=== PATIENT | female | born 1940 | race Caucasian/White ===

== ENCOUNTER 2017-08-24 14:35 | Emergency (ER) | payer OTHER, BC ==
--- NOTE | 2017-08-24 15:57 | EDPHY ---
H & P Smoking Status: Never smoked Time Seen by Provider: 08/24/17 15:44 HPI/ROS: CHIEF COMPLAINT: Suicidal ideation HISTORY OF PRESENT ILLNESS: 77-year-old female with a history of anxiety and depression presents with suicidal ideation. Increasing depression and anxiety recently. Associated with insomnia. She saw her primary care physician last week and was placed on Remeron. Since then, she has had increasing suicidal ideation. She just wants to , but states that she is too chicken to kill herself. No suicidal plan and no h/o suicide attempt. History of anxiety and depression intermittently over the years. Previously she was on Zoloft, which alleviated her depressive symptoms. REVIEW OF SYSTEMS: Constitutional: No fever, no chills Eyes: No visual changes ENT: No sore throat Respiratory: No cough, no shortness of breath Cardiac: No chest pain Gastrointestinal: no vomiting, no abdominal pain Genitourinary: no dysuria Musculoskeletal: No leg pain or swelling Skin: No rash Neurological: No headache, no weakness (Karyn Boyer) Past Medical/Surgical History: Depression Anxiety (Karyn Boyer) Social History: (Karyn Boyer) Physical Exam: General Appearance: Alert, pleasant, tearful Eyes: Pupils equal and round, conjunctival injection ENT, Mouth: Mucous membranes moist Neck: Normal inspection Respiratory: Lungs are clear to auscultation Cardiovascular: Regular rate and rhythm Gastrointestinal: Abdomen is soft and nontender Neurological: A&O, nonfocal, normal gait Skin: Warm and dry, no rash Extremities: Nontender, no pedal edema Psychiatric: depressed (Karyn Boyer) Constitutional: Initial Vital Signs Temperature (C) 36.7 C 08/24/17 14:42 Heart Rate 71 08/24/17 14:42 Respiratory Rate 14 08/24/17 14:42 Blood Pressure 140/73 H 08/24/17 14:42 O2 Sat (%) 94 08/24/17 14:42 O2 Delivery Mode Room Air Allergies/Adverse Reactions: No Known Allergies Allergy (Unverified 08/24/17 14:40) Home Medications: Medication Instructions Recorded Levothyroxine 08/24/17 Remeron 08/24/17 Zoloft 100mg (*) 08/24/17 Medical Decision Making ED Course/Re-evaluation: This patient presents with increased depression and suicidal ideation after being placed on Remeron. She is here voluntarily and requests a mental health evaluation. Signed over to Dr. Smith at shift change. Mental health eval pending. (Karyn Boyer) 0740: This patient has been seen evaluated by mental health. Kaleb, they feel that this patient is safe for discharge. I did go and see and speak with the patient she is comfortable this plan she is asking for something to sleep tonight. I will give her very limited supply of Ativan. Three tabs. She does understand if she has worsening suicidal ideation or wanting to hurt herself or anybody else she immediately return emergency room. Additionally she has been given follow-up resources. Psychiatry was consulted and felt that she is safe for discharge. (Venancio Smith) - Data Points Laboratory Results: Laboratory Results 08/24/17 16:10 08/24/17 16:10 08/24/17 08/24/17 08/24/17 17:15 16:10 16:10 WBC 4.84 10^3/uL 10^3/uL (3.80-9.50) RBC 5.82 10^6/uL H 10^6/uL (4.18-5.33) Hgb 17.6 g/dL H g/dL (12.6-16.3) Hct 51.6 % H % (38.0-47.0) MCV 88.7 fL fL (81.5-99.8) MCH 30.2 pg pg (27.9-34.1) MCHC 34.1 g/dL g/dL (32.4-36.7) RDW 13.3 % % (11.5-15.2) Plt Count 160 10^3/uL 10^3/uL (150-400) MPV 9.5 fL fL (8.7-11.7) Neut % (Auto) 58.5 % % (39.3-74.2) Lymph % (Auto) 24.6 % % (15.0-45.0) Catron % (Auto) 13.8 % H % (4.5-13.0) Eos % (Auto) 1.9 % % (0.6-7.6) Baso % (Auto) 1.0 % % (0.3-1.7) Nucleat RBC Rel Count 0.0 % % (0.0-0.2) Absolute Neuts (auto) 2.83 10^3/uL 10^3/uL (1.70-6.50) Absolute Lymphs (auto) 1.19 10^3/uL 10^3/uL (1.00-3.00) Absolute Monos (auto) 0.67 10^3/uL 10^3/uL (0.30-0.80) Absolute Eos (auto) 0.09 10^3/uL 10^3/uL (0.03-0.40) Absolute Basos (auto) 0.05 10^3/uL 10^3/uL (0.02-0.10) Absolute Nucleated RBC 0.00 10^3/uL 10^3/uL (0-0.01) Immature Gran % 0.2 % % (0.0-1.1) Immature Gran # 0.01 10^3/uL 10^3/uL (0.00-0.10) Sodium 141 mEq/L mEq/L (134-144) Potassium 4.2 mEq/L mEq/L (3.5-5.2) Chloride 108 mEq/L mEq/L (97-110) Carbon Dioxide 22 mEq/l mEq/l (22-31) Anion Gap 11 mEq/L mEq/L (8-16) BUN 22 mg/dL mg/dL (7-23) Creatinine 0.7 mg/dL mg/dL (0.6-1.0) Estimated GFR > 60 Glucose 67 mg/dL L mg/dL (70-100) Calcium 9.8 mg/dL mg/dL (8.5-10.4) Urine Opiates Screen NEGATIVE (NEGATIVE) Urine Barbiturates NEGATIVE (NEGATIVE) Ur Phencyclidine Scrn NEGATIVE (NEGATIVE) Ur Amphetamine Screen NEGATIVE (NEGATIVE) U Benzodiazepines Scrn NEGATIVE (NEGATIVE) Urine Cocaine Screen NEGATIVE (NEGATIVE) U Marijuana (THC) Screen NEGATIVE (NEGATIVE) Ethyl Alcohol < 10 mg/dL mg/dL (0-10) Departure - Departure Disposition: Home, Routine, Self-Care Clinical Impression: Suicidal ideation, Severe major depression Condition: Good Instructions: Depression (ED), Suicide Prevention for Adults (ED) Additional Instructions: Stop taking Remeron. Referrals: Pippa Baig MD [Primary Care Provider] - 1-2 days without fail
[2017-08-24 16:44] LABS: % IMMATURE GRANULYOCYTES 0.2 % (0.0-1.1); ABSOLUTE IMMATURE GRANULOCYTES 0.01 10^3/uL (0.00-0.10); ADD DIFF? NO; ADD MORPH? NO; ADD SCAN? NO; ATYPICAL LYMPHOCYTE FLAG 10 (0-99); FRAGMENT RBC FLAG 0 (0-99); HEMATOCRIT 51.6 % (38.0-47.0); HEMOGLOBIN 17.6 g/dL (12.6-16.3); LEFT SHIFT FLG 0 (0-99); LIPEMIA HEMOLYSIS FLAG 90 (0-99); MEAN CELL HEMOGLOBIN 30.2 pg (27.9-34.1); MEAN CELL HEMOGLOBIN CONCENTR. 34.1 g/dL (32.4-36.7); MEAN CELL VOLUME 88.7 fL (81.5-99.8); MEAN PLATELET VOLUME 9.5 fL (8.7-11.7); PLATELET CLUMPS FLAG 0 (0-99); PLATELET COUNT 160 10^3/uL (150-400); RED BLOOD CELL COUNT 5.82 10^6/uL (4.18-5.33); RED CELL DISTRIBUTION WIDTH 13.3 % (11.5-15.2)
[2017-08-24 16:49] LABS: ANION GAP 11 mEq/L (8-16); CALCIUM 9.8 mg/dL (8.5-10.4); CARBON DIOXIDE 22 mEq/l (22-31); CHLORIDE 108 mEq/L (97-110); CREATININE 0.7 mg/dL (0.6-1.0); ETHANOL SERUM < 10 mg/dL (0-10); GLOMERULAR FILTRATION RATE > 60; GLUCOSE 67 mg/dL (70-100); POTASSIUM 4.2 mEq/L (3.5-5.2); SODIUM 141 mEq/L (134-144)
[2017-08-24] MEDS ORDERED: LORAZEPAM 1 MG PREPACK#4 BTL TAKEHOME ONE ×2 (22:32→22:34)
[2017-08-24 22:57] VITALS: BP 132/88; PULSE 73; RESP 18; TEMP 98.2; O2SAT 91
== END 2017-08-24 22:45 | disposition home or self-care (01) ==
DX: R45.851 Suicidal ideations (principal); F32.2 Major depressive disorder, single episode, severe without psychotic features
CPT/HCPCS: 80305; G0480

== ENCOUNTER 2017-11-17 07:28 | Inpatient (IN) | payer OTHER, BC ==
[~2017-11-17 07:28] MED LIST: POVIDONE-IODINE 20 ML in SODIUM CL IRRIG SOLUTION 500 ML IRR ONE; ROPIVACAINE 0.2% 80 MG, EPINEPHrine 0.2 MG, KETOROLAC TROMETHAMINE 30 MG in SYRINGE 0 ML IU ONE; TRANEXAMIC ACID 1,400 MG in NS 100 ML IV ONE
[2017-11-17] MEDS ORDERED: ceFAZolin 1 GM/5 ML SYR ONE (07:50)
[2017-11-17] MEDS ORDERED: ceFAZolin 2 GM/SWFI 2 GM/20 ML SYR IVP ONE (08:05)
[2017-11-17] MEDS ORDERED: ONDANSETRON DISINTEGRATING 4 MG TAB PO ONE (08:05)
[2017-11-17] MEDS ORDERED: GABAPENTIN 300 MG CAP PO ONE (08:05)
[2017-11-17] MEDS ORDERED: DEXAMETHASONE 4 MG/ML VIAL IVP ONE (08:05)
[2017-11-17] MEDS ORDERED: ACETAMINOPHEN 325 MG TAB PO ONE (08:05)
[2017-11-17] MEDS ORDERED: FAMOTIDINE 20 MG TAB PO ONE (08:05)
[2017-11-17] MEDS ORDERED: LIDOCAINE 1% 2 ML INJ ID PRN (08:06)
[2017-11-17] MEDS ORDERED: LR 1,000 ML IV ONE (08:06)
[2017-11-17] MEDS ORDERED: ONDANSETRON DISINTEGRATING 4 MG TAB ONE (08:27)
--- NOTE | 2017-11-17 08:48 | PDHPUP ---
History & Physical Update H&P update statement: This history and physical update is based on an assessment of the patient which was completed after admission or registration (within 24 hours), but prior to the surgery/procedure. H&P update: H&P reviewed & patient examined, no change in patient's condition since H&P completed
[2017-11-17] MEDS ORDERED: MIDAZOLAM 2 MG/2 ML VIAL ONE (09:10)
[2017-11-17] MEDS ORDERED: MIDAZOLAM 2 MG/2 ML VIAL IVP ONE (09:18)
--- NOTE | 2017-11-17 09:19 | PDANEPAE ---
ANE History of Present Illness Patient presents for L CELINA ANE Past Medical History - Cardiovascular History Hx Hypertension: No Hx Arrhythmias: No Hx Chest Pain: No Hx Coronary Artery / Peripheral Vascular Disease: No Hx CHF / Valvular Disease: No Hx Palpitations: No - Pulmonary History Hx COPD: No Hx Asthma/Reactive Airway Disease: No Hx Recent Upper Respiratory Infection: No Hx Oxygen in Use at Home: No Hx Sleep Apnea: No Sleep Apnea Screening Result - Last Documented: Negative - Neurologic History Hx Cerebrovascular Accident: No Hx Seizures: No Hx Dementia: No - Endocrine History Hx Diabetes: No - Renal History Hx Renal Disorders: No - Liver History Hx Hepatic Disorders: No - Neurological & Psychiatric Hx Hx Neurological and Psychiatric Disorders: Yes Neurological / Psychiatric History Comment: neuropathy in both feet,. 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 - Cancer History Hx Cancer: Yes Cancer History Comment: Breast CA - Congenital Disorder History Hx Congenital Disorders: No - GI History Hx Gastrointestinal Disorders: No - Other Health History Other Health History: none - Chronic Pain History Chronic Pain: Yes (spinal stenosis (moderate)) - Surgical History Prior Surgeries: none ANE Review of Systems Review of Systems: - Exercise capacity METS (RN): 4 METS ANE Patient History - Allergies Allergies/Adverse Reactions: No Known Allergies Allergy (Verified 11/05/17 16:57) - Home Medications Home Medications: Levothyroxine [Synthroid 125 mcg (*)] 125 mcg PO DAILY06 08/24/17 [Last Taken 07:00] Sertraline HCl [Zoloft 100mg (*)] 100 mg PO DAILY 08/24/17 [Last Taken Unknown] Eszopiclone [Lunesta] 1 mg PO HS 11/04/17 [Last Taken 11/16/17 22:00] Herbals/Supplements -Info Only 1 ea PO DAILY 11/04/17 [Last Taken 11/10/17] Dacula Carbonate [Dacula Carbonate Cap 300 mg (*)] 900 mg PO HS 11/04/17 [ Last Taken 11/16/17 22:00] - NPO status NPO Status: no food or drink >8 hours NPO Since - Liquids (Date): 11/16/17 NPO Since - Liquids (Time): 19:30 NPO Since - Solids (Date): 11/16/17 NPO Since - Solids (Time): 19:00 - Anes Hx Anes Hx: no prior problems - Smoking Hx Smoking Status: Never smoked - Family Anes Hx Family Hx Anesthesia Complications: none ANE Labs/Vital Signs - Vital Signs Blood Pressure: 118/76 Heart Rate: 63 Respiratory Rate: 20 O2 Sat (%): 93 Height: 172.72 cm Weight: 70.307 kg ANE Physical Exam - Airway Mallampati Score: Class 2 Mouth exam: normal dental/mouth exam - Pulmonary Pulmonary: no respiratory distress - Cardiovascular Cardiovascular: regular rate and rhythym - ASA Status ASA Status: II ANE Anesthesia Plan Anesthesia Plan: spinal (RBA discussed)
[2017-11-17] MEDS ORDERED: fentaNYL 100 MCG/2 ML INJ ONE (09:20)
[2017-11-17] MEDS ORDERED: PROPOFOL/EMULSION 500 MG/50 ML BOTTLE IV ONE ×2 (09:21→10:24)
[2017-11-17] MEDS ORDERED: ONDANSETRON 4 MG/2 ML VIAL ONE (09:55)
[2017-11-17] MEDS ORDERED: NALOXONE HCL 0.4 MG/ML INJ IVP PRN (10:36)
[2017-11-17] MEDS ORDERED: HYDROCODONE/APAP 5/325 TAB PO PRN (10:36)
[2017-11-17] MEDS ORDERED: LR 500 ML IV PRN (10:36)
[2017-11-17] MEDS ORDERED: ONDANSETRON 4 MG/2 ML VIAL IVP PRN ×2 (10:36→11:06)
[2017-11-17] MEDS ORDERED: fentaNYL 100 MCG/2 ML INJ IVP PRN (10:36)
--- NOTE | 2017-11-17 10:43 | POSTOPPROG ---
Post Op Note Date of Operation: 11/17/17 Surgeon: Clinton Bejarano Director Investor Relations: Wendy Anesthesiologist: Roger Anesthesia: IV Sedation, Spinal Post-op Diagnosis: left hip arthritis Procedure: L CELINA Inf/Abcess present in the surg proc area at time of surgery?: No EBL: 100-500
[2017-11-17] MEDS ORDERED: diphenhydrAMINE 25 MG CAP PO PRN (11:06)
[2017-11-17] MEDS ORDERED: PROMETHAZINE HCL 25 MG/ML INJ IVP PRN (11:06)
[2017-11-17] MEDS ORDERED: MAGNESIUM HYDROXIDE 30 ML UDCUP PO PRN (11:06)
[2017-11-17] MEDS ORDERED: LACTULOSE 20 GM/30 ML UDCUP PO PRN (11:06)
[2017-11-17] MEDS ORDERED: BISACODYL 10 MG SUPP PR PRN (11:06)
[2017-11-17] MEDS ORDERED: DIPHENOXYLATE/ATROPINE LOMOTIL 1 TAB PO PRN (11:06)
[2017-11-17] MEDS ORDERED: POLYETHYLENE GLYCOL 3350 17 GM PKT PO PRN (11:06)
[2017-11-17] MEDS ORDERED: ONDANSETRON DISINTEGRATING 4 MG TAB PO PRN (11:06)
[2017-11-17] MEDS ORDERED: traMADol 50 MG TAB PO PRN (11:06)
[2017-11-17] MEDS ORDERED: PROMETHAZINE HCL 25 MG SUPPR PR PRN (11:06)
[2017-11-17] MEDS ORDERED: NS 500 ML IV PRN (11:06)
[2017-11-17] MEDS ORDERED: CYCLOBENZAPRINE 10 MG TAB PO PRN (11:06)
[2017-11-17] MEDS ORDERED: KETOROLAC 30 MG/1 ML SDV IVP PRN (11:06)
--- NOTE | 2017-11-17 11:14 | POSTANESTH ---
Post Anesthetic Evaluation Cardiovascular Status: Similar to Pre-Op Cond Respiratory Status: Similar to Pre-op Cond. Level of Consciousness/Mental Status: Can Participate in Eval Pain Control: Adequate, Prn Tx Ordered Nausea/Vomiting Control: Adequate, Prn Tx Ordered Complications Possibly Related to Anesthesia: None Noted
--- NOTE | 2017-11-17 11:24 | GOP ---
[f rep st] OPERATIVE REPORT DATE OF OPERATION: 11/17/2017 SURGEON: Clinton Bejarano MD SHIPPING AND RECEIVING COORDINATOR: BROOK Kenney. Skyler Talbert CFA. ANESTHESIA: Combination of Marcaine, spinal, and IV sedation. ANESTHESIOLOGIST: Shahid Duran MD. PREOPERATIVE DIAGNOSIS: Left hip severe degenerative arthritis. POSTOPERATIVE DIAGNOSIS: Left hip severe degenerative arthritis. PROCEDURE PERFORMED: Left total hip arthroplasty, ceramic femoral head on highly cross-linked polyet hylene cup liner. FINDINGS: ESTIMATED BLOOD LOSS: 300 mL. DESCRIPTION OF PROCEDURE: The patient was given 2 g of IV Ancef preoperatively within 60 minutes of surgery. She also received IV tranexamic acid at a dose of 20 mg/kg. She was placed on the operatin g room table and given spinal anesthesia with Marcaine by Dr. Duran. She was then placed supine and given IV sedation. A Cabral catheter was not used. She wore a GERARD stocking and SCD on the nonoperati ve leg. She was rolled to the right lateral decubitus position. The position was secured with the p egboard table attachment. An axillary roll was used, and all pressure points were carefully padded. I was careful to lock her pelvis in a rigid vertical position. Her perineum was isolated with plast ic adhesive drapes. The left hip and left lower extremity were prepped with ChloraPrep. They were d raped free using sterile sheets, stockinette, and Ioban plastic drapes. The [employer] time-out was performed to verify the correct patient identity and the c orrect surgical side and site. The [facility] time-out was also performed. I made a 5-inch straight oblique posterolateral hip skin incision. Subcutaneous tissues were sharply divided, and hemostasis was obtained using electrocautery. Her fascia sharon was identified and split proximally along the axis of its fibers. I then curved posteriorly and proximally and split the fas asia of gluteus delfina and bluntly split the muscle fibers in line with their orientation. The Venitan tip self-retaining retractor was inserted. Her sciatic nerve was located, partially exposed, and pro tected throughout the procedure. The external rotators and the posterior hip capsule were divided as separate layers at the base of the femoral neck, tagged, and reflected posteriorly. A smooth 8-inch Steinmann pin was inserted vertically into the ilium superior to the acetabulum. An 8-inch drill bi t was inserted vertically into the greater trochanter and parallel to the first pin. The distance be tween the two was measured for leg length reference. Her femoral head was dislocated posteriorly. H er femoral neck was osteotomized at the appropriate level and inclination. I was careful to preserve all the posterior capsule and most of the anterior capsule. The remnant of the damaged labrum was completely excised. I prepared the femur first. This allowed me to electrician ship the amount of natural femoral neck anteversion. This, in turn, allowed me to later determine the correct amount of cup anteversion. She had approx imately 10 or 12 degrees of femoral neck anteversion. The canal was opened laterally with a box chis el. I hand broached sequentially up to size 5. I used a size 6 high offset Accolade II broach as a trial stem. I was careful to lateralize adequately. Appropriate retractors were inserted to expose the acetabulum. The acetabulum was reamed sequentiall y up to 51 mm. I selected a 52 mm Sydni Tritanium solid-backed hemispherical shell. This was nikole ed securely into place in the proper degree of inclination and anteversion. I used the transverse ac etabular ligament and other bony acetabular landmarks to help me properly orient the cup. I inserted a screw-in metal dome hole plug. I performed a series of trial reductions to determine length and stability. I concluded that the siz e 6 stem with high offset with a -4 neck length and a 10 degree lip trial liner gave me the proper co mbination of appropriate length and good anterior and posterior stability. She was a couple of kinjal meters short preoperatively, and I was intentionally lengthening her a slight amount. The 10 degree lip Sydni X3 highly cross-linked polyethylene liner was inserted and tapped securely into place. The Kinzers Accolade II stem in a size 6 with high offset was inserted press-fit and was a very tight fit. I did 1 final trial reduction and confirmed that the -4 mm neck length with a 32 mm head was the correct combination. The Kinzers Biolox Delta ceramic head with an outside diameter of 32 mm and a neck length of -4 mm was tapped securely into place on to the clean trunnion. The ronen tabulum was irrigated and cleaned, and the hip was reduced 1 final time. She had excellent anterior and posterior stability and appropriate length. Then 40 mL of the joint anesthetic cocktail were injected into the capsule, the deep musculature, and subcutaneous tissues around the skin edges. The joint was thoroughly irrigated 1 final time with a dilute Betadine solution. Her sciatic nerve was reinspected and looked unharmed. The external rotat ors and the posterior hip capsule were repaired in separate layers with #2 FiberWire sutures through drill holes in the greater trochanter. The fascia sharon was closed first with a couple of figure-of-e ight #2 FiberWire sutures followed by a running #2 barbed Ethicon StrataFix PDO suture. The subcutan eous tissues were closed with a running 0 barbed Ethicon StrataFix Monoderm suture. The skin was kd sed with a running 3-0 barbed Ethicon StrataFix Monoderm subcuticular suture. The skin edges were re approximated and sealed with Dermabond glue. The wound was covered with a large Mepilex waterproof s terile surgical dressing. A long-leg GERARD stocking and SCD were applied to her left lower extremity. She wore a stocking and SC D on the opposite leg during the procedure. An abduction pillow was placed between her knees. She w as awakened from anesthesia and rolled to the supine position on her [facility]. She was taken to PACU in satisfactory condition. There were no recognized intraoperative complications. COUNTS: The sponge and needle count were correct on 2 occasions. I used a Kinzers Tritanium hemispherical solid-backed acetabular shell with an outside diameter of 32 mm. The liner was a Sydni X3 10-degree highly cross-linked liner with an inside diameter of 32 mm . The femoral component was a high offset Accolade II stem in a size 6 and press-fit. The femoral h ead was a Sydni Biolox Delta ceramic head with a -4 mm neck length and a 32 mm outside diameter. Tyler Hatfield and Skyler Talbert acted as surgical assistants. Their assistance was a medical necess ity. /[id number]/MODL
[2017-11-17] MEDS ORDERED: LR 1,000 ML IV SCH (11:30)
[2017-11-17] MEDS: ACETAMINOPHEN 325 MG TAB PO SCH ×2 (12:27→17:24)
[2017-11-17] MEDS: ceFAZolin 2 GM/DEXTROSE 100 ML IV SCH (16:44)
[2017-11-17] MEDS: oxyCODONE IR 5 MG TAB PO PRN ×2 (16:48→22:51)
[2017-11-17] MEDS ORDERED: LITHIUM CARBONATE 300 MG CAP PO SCH (21:00)
[2017-11-17] MEDS ORDERED: ZOLPIDEM TARTRATE 5 MG TAB PO SCH (21:00)
[2017-11-17] MEDS ORDERED: Eszopiclone [Lunesta] 2 MG PO SCH (21:00)
[2017-11-17] MEDS: ASPIRIN EC 325 MG TAB PO SCH (21:32)
[2017-11-17] MEDS: FAMOTIDINE 20 MG TAB PO SCH (21:32)
[2017-11-17] MEDS: SENNOSIDES/DOCUSATE SODIUM TAB PO SCH (21:32)
[2017-11-17 23:27] VITALS: RESP 16
[2017-11-18] MEDS: ACETAMINOPHEN 325 MG TAB PO SCH ×3 (01:09→11:15)
[2017-11-18] MEDS: ceFAZolin 2 GM/DEXTROSE 100 ML IV SCH (01:09)
[2017-11-18] MEDS ORDERED: LEVOTHYROXINE 125 MCG TAB PO SCH (06:00)
[2017-11-18] MEDS: oxyCODONE IR 5 MG TAB PO PRN (06:27)
[2017-11-18 08:47] VITALS: BP 99/55; PULSE 71; TEMP 98.2; O2SAT 91
[2017-11-18] MEDS ORDERED: SERTRALINE HCL 100 MG TAB PO SCH (09:00)
[2017-11-18] MEDS ORDERED: FERROUS SULFATE 140 MG TAB.ER PO SCH (09:00)
[2017-11-18] MEDS: ASPIRIN EC 325 MG TAB PO SCH (09:20)
[2017-11-18] MEDS: FAMOTIDINE 20 MG TAB PO SCH (09:20)
[2017-11-18] MEDS: SENNOSIDES/DOCUSATE SODIUM TAB PO SCH (09:20)
--- NOTE | 2017-11-18 09:51 | SOAPPROG ---
SOAP Progress Note Assessment/Plan: Assessment: Afebrile. Awake and alert. Moderate pain. She has already been walking in the [place] and has completed stairs. Her dressing is dry. Postop H&H are satisfactory. Postop films look excellent. Sciatic nerve intact. Plan: Physical therapy for ambulation and stairs. Discharged later today 11/18/17 09:51 Objective: Vital Signs Temp Pulse Resp BP Pulse Ox 36.8 C 71 16 99/55 L 91 L 11/18/17 08:00 11/18/17 08:00 11/18/17 08:00 11/18/17 08:00 11/18/17 08:00 Laboratory Results 11/18/17 04:55 11/17/17 11/18/17 11/19/17 05:59 05:59 05:59 Intake Total 2105 350 Output Total 700 1 Balance 1405 349 ICD10 Worksheet Patient Problems: Problems Problem Status Onset Osteoarthritis of left hip Acute
--- NOTE | 2017-11-18 10:32 | GDS ---
[f rep st] DISCHARGE SUMMARY ADMISSION DIAGNOSIS: Left hip severe degenerative arthritis. DISCHARGE DIAGNOSIS: Left hip severe degenerative arthritis. OPERATION PERFORMED: On 11/17/2017, a left total hip arthroplasty. POSTOPERATIVE COMPLICATIONS: None. CONDITION ON DISCHARGE: Improved. DESCRIPTION OF HOSPITAL COURSE: The patient was admitted to the hospital on the morning of surgery. The same day, under a combination of Marcaine, spinal, and IV sedation, she underwent a left total h ip arthroplasty. Postoperatively, she was treated with multimodal DVT prophylaxis, including early m obilization and aspirin. On the first postoperative day, her hemoglobin and hematocrit were 10.9 and 33.2. She was seen by physical therapy and made excellent progress with ambulation and stairs. By the time of discharge, she was afebrile, her wound was clean and dry, and she was independent walking with a walker. DISPOSITION: The patient is discharged to her home. She may progress to full weightbearing on the l eft as tolerated. Use an abduction pillow in bed for 3 weeks. Continue aspirin 325 mg p.o. daily fo r 21 days. She has prescription for oxycodone and tramadol for pain control. I will see her back in the office on December 04, 2017. If there are any problems, she is to call me at the office. /[id number]/MODL
--- NOTE | 2017-11-18 13:07 | ASDISCHSUM ---
Discharge Information Plan Status:Home with No Needs Medically Cleared to Leave: Discharge Date:11/18/2017 11:24 AM CM D/C Disposition:Home, Routine, Self-Care ADT D/C Disposition:Home, Routine, Self-Care Projected Discharge Date:11/18/2017 11:24 AM Transportation at D/C: Discharge Delay Reason: Follow-Up Date:11/18/2017 11:24 AM Discharge Slot: Final Diagnosis: Placement Information Patient Contact Information Contact Name:DIANN Relationship: [address] Work Phone: [facility]:[place] Alternate Phone: [facility]/Zip Code:[place] [address] Email: Financial Information Financial Class: Primary Plan Desc:MEDICARE INPATIENT Primary Plan Number:[id number] Secondary [facility] Desc[facility] Secondary Plan Number:[id number] Assessment Information CM Wet Process Assistant Head Miller Assessment CJR Did you go to joint Answers: No (why?) Notes: Watched the online vide o class? Date Signed: 11/11/2017 10:14 AM Electronically Signed By:Kaylin Palma [facility] CM Progress Note CM Note CM Note Notes: PT rec home. Pt medically stable for d/c, no CM d/c needs identified. Date Signed: 11/18/2017 01:07 PM Electronically Signed By:REBECCA Hua Intervention Information
== END 2017-11-18 11:24 | disposition home or self-care (01) | DRG 470 ==
LOC: F3N 07:28
PROVIDERS: ADMIT Orthopaedic Surgery; ATTEND Orthopaedic Surgery
PROC: 0SRB04Z Replacement of Left Hip Joint with Ceramic on Polyethylene Synthetic Substitute, Open Approach (ICD-10-PCS; principal; 2017-11-17 09:30)
DX: M16.12 Unilateral primary osteoarthritis, left hip (principal); G89.29 Other chronic pain; Z85.3 Personal history of malignant neoplasm of breast
CPT/HCPCS: 97110-GP; 97116-GP; 97161-GP; 97165-GO; 97530-GP; 97535-GO; G8978-GP-CJ; G8979-GP-CI; G8980-GP-CI; G8987-GO-CJ; G8988-GO-CH; J0171; J0690; J1100; J1885; J2250; J2405; J2704; J2795; J3010